=== PATIENT | female | born 1955 | race Caucasian/White ===

== ENCOUNTER 2021-05-15 05:06 | Emergency (ER) | payer MEDICAID ==
[~2021-05-15] VITALS: Ht 170.2 cm; Wt 52.3 kg
[~2021-05-15 05:06] MED LIST: ALBU8HFA PO
[2021-05-15 05:34] VITALS: BP 157/96
[2021-05-15] MEDS ORDERED: HYDROcodone/acetaminophen 5mg/325mg tablet PO ONE (06:15)
== END 2021-05-15 07:35 | disposition home or self-care (01) ==
LOC: ER 05:07
DX: G89.18 Other acute postprocedural pain (principal); F15.90 Other stimulant use, unspecified, uncomplicated; Z98.890 Other specified postprocedural states; Z79.899 Other long term (current) drug therapy
CPT/HCPCS: 99284

== ENCOUNTER 2022-10-29 19:35 | Emergency (ER) | payer MEDICARE, MEDICAID ==
[~2022-10-29] VITALS: Ht 170.2 cm; Wt 50.0 kg
[2022-10-29 19:48] VITALS: BP 149/68
[2022-10-29] MEDS ORDERED: LIDOcaine 1% W/epiNEPHrine 1:200,000 10ml vial IJ ONE (21:15)
[2022-10-29] MEDS ORDERED: LIDOcaine 1% W/epiNEPHrine 1:100,000 20ml vial IJ ONE (21:25)
[2022-10-29] MEDS ORDERED: oxyCODONE/APAP 5-325mg tablet PO ONE (21:35)
[2022-10-29] MEDS ORDERED: PER5325T PO (21:41)
== END 2022-10-29 22:22 | disposition home or self-care (01) ==
LOC: ER 19:35
DX: S52.501A Unspecified fracture of the lower end of right radius, initial encounter for closed fracture (principal); F15.10 Other stimulant abuse, uncomplicated; Z87.81 Personal history of (healed) traumatic fracture; Z79.899 Other long term (current) drug therapy; W19.XXXA Unspecified fall, initial encounter; Y93.89 Activity, other specified; Y92.89 Other specified places as the place of occurrence of the external cause; Y99.8 Other external cause status
CPT/HCPCS: 25605; 73100; 73110; 99284; A4565